=== PATIENT | male | born 1985 | race Caucasian/White ===

== ENCOUNTER 2020-11-07 11:03 | Emergency (ER) | payer SELFPAY ==
[~2020-11-07] VITALS: Ht 185.4 cm; Wt 156.0 kg
[2020-11-07 11:09] VITALS: Ht 185.4 cm; Wt 156.0 kg
[2020-11-07 11:41] VITALS: BP 140/83
== END 2020-11-07 11:41 | disposition home or self-care (01) ==
LOC: ED 11:03
DX: H92.02 Otalgia, left ear (principal); H91.92 Unspecified hearing loss, left ear